=== PATIENT | male | born 1975 | race African-American/Black ===

== ENCOUNTER → 2021-11-02 | Emergency (ER) | payer MEDICARE, OTHER ==
[~2021-11-02] VITALS: Ht 160 cm; Wt 86.2 kg
[~2021-11-02] MED LIST: CT SWABBABLE VALVE TRANS SET 1 EA INFUS.SET MC ONE; IOHEXOL-300 100 ML VIAL IV ONE; IV NS 0.9% 250 ML IV ONE; MORPHINE SULFATE INJ 2 MG/ML DISP.SYRIN IV ONE; MORPHINE SULFATE INJ 4 MG/ML DISP.SYRIN ONE; ONDANSETRON HCL/PF 4 MG/2 ML VIAL ONE
--- NOTE | 2021-11-02 13:01 | NUR ---
BIBRA [address] C/O ABDOMINAL PAIN X2 DAY AGO. PT IS ALERT. BREATHING IS EVEN AND UNLABORED. PT ATTCHED TO MONITOR AWAITING MD MICHELLE
[2021-11-02 14:01] LABS: BASOPHILS % (AUTO) 0.1 % (0.0-2.0); HEMATOCRIT 47 % (39-51); HEMOGLOBIN 15.4 g/dL (13.5-17.5); LYMPHOCYTES # (AUTO) 0.9 K/uL (0.8-4.8); MEAN CORPUSCULAR HGB CONC 33 g/dl (31.0-36.0); MEAN CORPUSCULAR VOLUME 95 fL (80-96); MONOCYTES # (AUTO) 0.4 K/uL (0.1-1.30); MONOCYTES % (AUTO) 3.1 % (2.0-12.0); NEUTROPHILS # (AUTO) 11.1 K/uL (1.8-8.9); NEUTROPHILS % (AUTO) 89.8 % (43.0-81.0); PLATELET COUNT (AUTO) 227 K/uL (150-450); RED BLOOD CELL COUNT(AUTO) 4.97 MIL/uL (4.5-6.0); WHITE BLOOD COUNT (AUTO) 12.4 K/uL (4.3-11.0)
[2021-11-02 14:17] LABS: CALCIUM, SERUM 9.1 mg/dL (8.5-10.1); CREATININE 0.8 mg/dL (0.6-1.3)
[2021-11-02 14:23] LABS: ALBUMIN 3.6 g/dL (3.4-5.0); BILIRUBIN,DIRECT 0.8 mg/dL (0.0-0.2); BILIRUBIN,TOTAL 1.4 mg/dL (0.2-1.0)
--- NOTE | 2021-11-02 14:49 | NUR ---
NURSING SUP CALLED FOR MIDLINE
--- NOTE | 2021-11-02 15:07 | NUR ---
PT RESTING COMFORTABLE IN BED, EASY TO AROUSE.
--- NOTE | 2021-11-02 15:45 | NUR ---
PT VOMITED DR GARCIA GAVE VERBAL ORDERS OF ZOFRAN 4MG IV
--- NOTE | 2021-11-02 16:15 | NUR ---
Note leigh in EDM - 11/02/21 at 1620 by OLIVIA SHARA [address] C/O ABDOMINAL PAIN X2 DAY AGO. PT IS ALERT. BREATHING IS EVEN AND UNLABORED. PT ATTCHED TO MONITOR AWAITING MD MICHELLE
--- NOTE | 2021-11-02 16:24 | NUR ---
FOLLOWED UP WITH NURSING SUP FOR MIDLINE, NO ETA AVAILABLE
--- NOTE | 2021-11-02 16:39 | NUR ---
PT TAKEN TO CT
--- NOTE | 2021-11-02 16:41 | NUR ---
MIDLINE ETA 1800
--- NOTE | 2021-11-02 17:00 | NUR ---
PT BACK FROM CT
--- NOTE | 2021-11-02 18:29 | NUR ---
MIDLINE AT BEDSIDE
--- NOTE | 2021-11-02 18:41 | NUR ---
midline establish right upper arm 18g
--- NOTE | 2021-11-02 19:11 | NUR ---
REPORT GIVEN TO BEN FOR PEDRO
--- NOTE | 2021-11-02 20:00 | NUR ---
[facility] NUMBER FOR UPDATES
--- NOTE | 2021-11-02 21:16 | NUR ---
[facility] ETA 10MIN
--- NOTE | 2021-11-02 22:04 | NUR ---
EMT AT BEDSIDE
[2021-11-02 22:23] VITALS: BP 160/95
== END ==
LOC: ER 12:47
DX: R10.32 Left lower quadrant pain (principal); G40.909 Epilepsy, unspecified, not intractable, without status epilepticus; F70 Mild intellectual disabilities
CPT/HCPCS: 36410; 36415; 74176; 76705; 80048; 80076; 83690; 85025; 96374; 99285; J2270; J7050; Q9967; J2405